=== PATIENT | female | born 1975 | race Caucasian/White ===

== ENCOUNTER → 2024-09-22 09:06 | Outpatient (REF) | payer BC, SELFPAY | LOC: WDC 09:06 | PROVIDERS: ATTENDING PHYSICIAN Family Medicine | DX: Z12.31 Encounter for screening mammogram for malignant neoplasm of breast (principal); N63.42 Unspecified lump in left breast, subareolar | CPT/HCPCS: 76642; 77062; 77066 ==

== ENCOUNTER → 2024-10-23 08:01 | Outpatient (REF) | payer BC, SELFPAY ==
--- NOTE | 2024-10-23 13:57 | OID.BR.INTR ---
[facility] Breast Navigator - Initial
- -
Date of Contact: 10/23/24
Met with patient. Will follow up as needed per protocol.
== END ==
LOC: WDC 08:01
PROVIDERS: ATTENDING PHYSICIAN Family Medicine
DX: N63.23 Unspecified lump in the left breast, lower outer quadrant (principal)
CPT/HCPCS: 19083; 88112; 88305; 88341; 88342; 88360; A4648

== ENCOUNTER 2024-11-02 01:04 | Emergency (ER) | payer BC, SELFPAY ==
[2024-11-02 01:08] VITALS: BP 114/92
[2024-11-02 01:09] VITALS: BP 114/92
[2024-11-02 01:20] VITALS: BMI 26.4
[2024-11-02 01:32] LABS: Hematocrit 37.0 % (37.0-47.0); Hemoglobin 12.6 g/dL (12.0-16.0); Mean Corp Hgb Conc. 34.1 g/dL (33.0-37.0); Mean Corpuscular Volume 88.5 fL (81.0-99.0); Nucleated Red Blood Cells % 0 %; Platelet Count 332 10^3/uL (130-400); Red Cell Dist. Width 12.6 % (11.5-14.5)
--- NOTE | 2024-11-02 01:38 | ED.GENMED ---
History of Present Illness
General
Chief Complaint: Fall
Source: patient
Time Seen by Provider: 11/02/24 01:25
History of Present Illness
History of Present Illness:
49-year-old female presents to the emergency room complaining of head injury from fall. Patient was waiting for an Uber after an IV out when she tripped and fell. She struck her head on the sidewalk. No loss of conscious. Patient does not take
any oral anticoagulants. She denies any complaints other than bleeding from the wound.
Phy Exam
Physical Exam
Physical Exam:
General: Awake, Alert, Oriented X3. No acute distress.
Vitals: unremarkable
Head: Left forehead hematoma with a 0.5 cm laceration
Eyes: Pupils equal, EOMI
Throat: Airway intact, no exudates
Neck: Trachea midline
Lungs: Clear and equal b/l
Heart: Regular rate, no murmurs
Abd: Soft, Nontender, No pulsatile mass
Neuro: Nonfocal
Skin: Warm, dry, no rash
Extremities: pulses equal b/l, no edema
Course
Orders/Labs/Results
Orders:
Orders
11/02/24 01:23
Basic Metabolic Panel Urgent
Comment: NO K
CBC/With Diff [Complete Blood Count/With Diff] Urgent
11/02/24 01:38
CT Head W/o Iv Contrast Urgent
Comment:
Reason For Exam: fall, head injury
Tetanus/Diphth/Acelpertussis [Adacel] 0.5 ml IM .ONCE ONE
Abnormal Lab Results
11/02/24
01:23
RBC 4.18 L 10^6/uL
(4.20-5.40)
Chloride 111 H mmol/L
(98-107)
Carbon Dioxide 17 L mmol/L
(22-30)
Glucose 117 H mg/dl
(70-99)
07/27/25 01:23
11/02/24 01:23
Vital Signs
Initial and Last Documented VS:
Initial Vital Signs
Temp Pulse Resp BP Pulse Ox
97.8 F 89 18 114/92 99
11/02/24 01:08 11/02/24 01:08 11/02/24 01:08 11/02/24 01:08 11/02/24 01:08
Last Documented Vital Signs
Temp Pulse Resp BP Pulse Ox
97.8 F 73 15 110/67 98
11/02/24 01:08 11/02/24 02:45 11/02/24 02:45 11/02/24 02:27 11/02/24 02:45
Procedures
Laceration Closure
Left Forehead:
Status of Wound: clean
Size of Wound in cm: 0.7
Description of Wound Edges: ragged
Preparation: cleaned with saline and cleaned with Betadine
Anesthesia: 1% Lidocaine with epi
Revision/Debridement: routine- no revision
Wound exploration: explored to base- no FB
Type of Closure: single layer closure
Skin Closure Material: 6-0 nylon
Number of sutures: 2
MDM/Problems Addressed
Differential Diagnosis Includes:
Laceration, contusion, subdural
MDM/Problems Addressed:
Patient presents after a fall and striking her head. She is able to answer questions appropriately at the but is intoxicated. Laceration sutured with 2 simple interrupted sutures. Will obtain a head CT given her intoxication.
*Pulse Oximetry
SaO2: 97
Oxygen Mode of Delivery: Room air
Patient hypoxic: no
*Critical Care Note
Total Time (30-74mins, 75-104mins- exclusive of procedures): Not Applicable
ED Attending Note
-
Portions of this chart may have been created with voice recognition software.� Occasional wrong word or��sound alike� substitutions may have occurred due to the inherent limitations of voice recognition software.
Discharge Plan
Departure
Patient Disposition: Home (Routine Discharge)
Date of Disposition: 11/02/24
Time of Disposition: 02:52
Patient with high blood pressure during this ER visit?: No
Condition: Good
Discharge Problem:
Head injury, Forehead laceration, Alcohol intoxication
Instructions: Head Injury in Adults (DC), Laceration Repair With Stitches (DC)
Activity Restrictions/Additional Instructions:
Sutures should be ready to be removed in 5 days. Apply antibiotic ointment to the wound.
Interventions
Interventions:
*Risk Screen - Suicide Last Done: 11/02/24 01:18
*General Assessment Last Done: 11/02/24 01:18
*Neglect/Abuse Screening Last Done: 11/02/24 01:18
*ED- Fall Risk Assessment Last Done: 11/02/24 01:18
*ED COVID-19 Vaccine History Last Done: 11/02/24 01:18
*Nursing Disposition Last Done: 11/02/24 03:00
ED-Musculoskeletal Assessment Last Done: 11/02/24 01:15
ED- Neurological Assessment Last Done: 11/02/24 01:15
ED-Skin Assessment Last Done: 11/02/24 02:58
Discharge Date and Time
Discharge Date/Time: 11/02/24 03:01
Print Language: CHINESE
[2024-11-02 01:57] LABS: Blood Urea Nitrogen 10 mg/dl (7-17); Calcium 9.1 mg/dl (8.4-10.2); Carbon Dioxide 17 mmol/L (22-30); Chloride 111 mmol/L (98-107); Estimated Creatinine Clearance 79 ml/min; Glucose 117 mg/dl (70-99); Sodium 143 mmol/L (135-145); eGFR > 60.00
[2024-11-02 02:27] VITALS: BP 110/67
[2024-11-02] MEDS: ADACEL 0.5 ML IM (02:36)
== END 2024-11-02 03:01 | disposition home or self-care (01) ==
LOC: EMR 01:04
PROVIDERS: EMERGENCY PHYSICIAN Emergency Medicine; FAMILY PHYSICIAN Family Medicine
DX: S09.90XA Unspecified injury of head, initial encounter (principal); S01.81XA Laceration without foreign body of other part of head, initial encounter; F10.129 Alcohol abuse with intoxication, unspecified; W01.0XXA Fall on same level from slipping, tripping and stumbling without subsequent striking against object, initial encounter; Y92.480 Sidewalk as the place of occurrence of the external cause
CPT/HCPCS: 99284; 12011; 70450; 80048; 85025; 90715

== ENCOUNTER 2024-12-09 06:15 | Day surgery (SDC) | payer BC, SELFPAY ==
[2024-11-25 08:43] LABS: Hematocrit 36.0 % (37.0-47.0); Hemoglobin 12.0 g/dL (12.0-16.0); Mean Corp Hgb Conc. 33.3 g/dL (33.0-37.0); Mean Corpuscular Volume 90.7 fL (81.0-99.0); Platelet Count 320 10^3/uL (130-400); Red Cell Dist. Width 11.9 % (11.5-14.5)
[2024-11-25 09:18] LABS: ALT (SGPT) 11 U/L (0-35); AST (SGOT) 23 U/L (14-36); Albumin 4.4 g/dl (3.5-5.0); Alkaline Phosphatase 44 U/L (38-126); Blood Urea Nitrogen 12 mg/dl (7-17); Calcium 9.3 mg/dl (8.4-10.2); Carbon Dioxide 25 mmol/L (22-30); Chloride 108 mmol/L (98-107); Glucose 90 mg/dl (70-99); Potassium 4.6 mmol/L (3.5-5.1); Prealbumin (Transthyretin) 23.8 mg/dl (17.6-36.0); Sodium 140 mmol/L (135-145); Total Protein 7.2 g/dl (6.3-8.2); eGFR > 60.00
[2024-11-25 09:34] LABS: Vitamin D, 25-OH*** 47.7 ng/mL (30-80)
[2024-11-25 13:55] VITALS: BMI 24.4
[2024-12-09] VITALS (7 sets, daily range): BP systolic 86–108; BP diastolic 60–77; BMI 24.4
[2024-12-09] MEDS: NORMOSOL-R/PLASMALYTE-A 1000 IV (08:05)
[2024-12-09] MEDS: TYLENOL 1000 MG PO (08:05)
--- NOTE | 2024-12-09 10:24 | W.IMMPOSTOP ---
Surgical Immed Post Op Note
-
Primary Surgeon: Mickey
Assisting Surgeon: none
Pre-op Diagnosis: Left breast mass with atypical cells
Post-op Diagnosis: Same
Procedure Performed: Excisional biopsy left breast mass
Anesthesia Type: TIVA
Specimen / Cultures: Left breast mass
Estimated Blood Loss: 2cc
Complications: None
Operative Findings: None
--- NOTE | 2024-12-09 10:25 | OR.RPT ---
Operative Report
Operative Report
Date of procedure: 12/09/2024
Surgeon: Mickey
Preoperative diagnosis: Left breast mass with atypical aspiration cytology
Postoperative diagnosis: Same
Procedure: Excisional biopsy left breast mass
The patient is a 49-year-old female who palpated a left breast mass and imaging showed multiple findings but 1 complex mass which underwent aspiration. The cells returned as atypical and she presents now for surgical resection.
The patient was prepped in the same-day surgical services unit. DVT and antibiotic prophylaxis were provided. She confirmed the palpable position of the mass which was in the 4 o'clock position of the retroareolar region. She was taken to the
operating room.
In the supine position intravenous sedation was delivered. Left breast was prepped and draped in the usual sterile fashion and all team members performed an appropriate timeout procedure.
All tissues were anesthetized with 1% lidocaine plain. A lateral circumareolar incision was made sharply with the blade. Skin flap was elevated and a wide resection of the mass was performed using the electrocautery. Time out of body was noted
and the specimen was oriented for the pathologist. This was sent for permanent analysis. Hemostasis was maintained with the cautery. Marcaine 0.5% plain was instilled and the wound was closed using simple interrupted 3-0 plain on deep
intermediate and subcutaneous tissue and the skin was closed with running subcuticular 4 Monocryl.
Surgical glue and a sterile compressive dressing were applied. All sponge needle and instrument counts were correct and the patient was transferred back to the same-day surgical services unit for recovery
([id number])
== END 2024-12-09 10:55 | disposition home or self-care (01) ==
LOC: SDS 06:15
PROVIDERS: ATTENDING PHYSICIAN Surgery; FAMILY PHYSICIAN Family Medicine
DX: N60.42 Mammary duct ectasia of left breast (principal)
CPT/HCPCS: 19301; 36415; 80053; 82306; 84134; 85027; 88307; 93005